=== PATIENT | female | born 1995 | race Caucasian/White ===

== ENCOUNTER 2016-06-18 14:51 | Emergency (ER) | payer OTHER ==
[~2016-06-18] VITALS: Ht 157.5 cm; Wt 77.1 kg
[~2016-06-18 14:51] MED LIST: TYLENOL WITH C1 EACH PO
--- NOTE | 2016-06-18 15:46 | ED GI/GU/ABDOMINAL COMPLAINT ---
History of Present Illness General Chief Complaint: Abdominal Pain/Flank Pain Stated Complaint: ABD PAIN Source: patient Exam Limitations: no limitations Vital Signs & Intake/Output Vital Signs & Intake/Output Vital Signs Date Time Temp Pulse Resp B/P Pulse O2 O2 Flow FiO2 Ox Delivery Rate 06/18 1835 97.4 82 18 126/70 98 Room Air 06/18 1745 Room Air 06/18 1650 97.9 91 18 130/59 98 Room Air 06/18 1454 96.4 109 16 128/85 97 Room Air Allergies Coded Allergies: No Known Allergies (12/17/15) Reconcile Medications Alprazolam 0.5 MG TABLET 1 TAB PO BIDP PRN ANXIETY (Reported) Escitalopram Oxalate (Unknown Strength) TABLET (Unknown Dose) UNKNOWN ( Reported) Etonogestrel/Ethinyl Estradiol (Nuvaring Vaginal Ring) 0.12 MG -0.015 MG/24 HR VAG.RING 1 EACH VG Q30D CONTROL (Reported) use for 3 weeks, skip for 1 week Levothyroxine Sodium (Unknown Strength) TABLET (Unknown Dose) PO DAILY UNKNOWN (Reported) Ondansetron (Zofran Odt) 4 MG TAB.RAPDIS 1 TAB SL TID PRN nausea Tylenol With Codeine (Tylenol With Codeine #3 Tablet) 1 EACH TABLET 1 TAB PO Q8P PRN PAIN Triage Note: 21 Y/O FEMALE C/O NAUSEA AND MID ABDOMINAL PAIN X 2 DAYS. STATES SHE VOMITED X 2 AT WORK TODAY. DENIES URINARY SYMPTOMS. LAST MENSES 2 WEEKS AGO AND NORMAL PER PT Triage Nurses Notes Reviewed? yes ? n Is pt currently ? No HPI: 21-year-old female here with complaints of 2 days of central epigastric abdominal pain and right upper quadrant abdominal pain that is nonradiating. She has nausea over the last 2 days and vomited twice today. She has poor appetite, she ate a banana this morning however vomited after eating it. Her pain is worse after eating. She has chills without fever. She is nauseous at this time. Pain is an 8 out of 10 and is colicky, it goes up to a 10 out of 10. She has not tried anything for the pain. She has no previous abdominal surgeries or problems. Her sister had appendicitis who is 13 years old, no known gallbladder trouble in the family. (LUBERTCHRYSTAL DURON) Past History Travel History Traveled to [place] past 21 day No Medical History Any Pertinent Medical History? none Neurological: NONE EENT: NONE Cardiovascular: NONE Respiratory: NONE Gastrointestinal: NONE Hepatic: NONE Renal: NONE Musculoskeletal: NONE Psychiatric: NONE Endocrine: NONE Blood Disorders: NONE Cancer(s): NONE TIE BUYER/Reproductive: NONE Surgical History Surgical History: non-contributory Psychosocial History What is your primary language Persian Tobacco Use: Never used Family History Hx Contributory? No (CHRYSTAL CID) Review of Systems Review of Systems Constitutional: Reports: see HPI. EENTM: Reports: no symptoms. Respiratory: Reports: no symptoms. Cardiovascular: Reports: no symptoms. GI: Reports: see HPI. Genitourinary: Reports: no symptoms. Musculoskeletal: Reports: no symptoms. Skin: Reports: no symptoms. Neurological/Psychological: Reports: no symptoms. Hematologic/Endocrine: Reports: no symptoms. Immunologic/Allergic: Reports: no symptoms. All Other Systems: Reviewed and Negative (CHRYSTAL CID) Physical Exam Physical Exam General Appearance: well developed/nourished Gastrointestinal: normal bowel sounds, soft, TENDERNESS IN THE EPIGASTRIC RIGHT UPPER QUADRANT POSITIVE [place] SIGN nEGATIVE LOWER ABDOMINAL TENDERNESS, NEGATIVE mCbURNEY'S POINT TENDERNESS Comments: Well-developed well-nourished no apparent distress. HEENT: Atraumatic, extraocular motion intact Neck: Supple, no lymphadenopathy Back: Nontender Respiratory: No respiratory distress clear to auscultation bilateral. Heart: Regular rate and rhythm no murmur Extremities: No edema, full range of motion Neuro: Alert and oriented x3 Psych: Mood affect normal, normal memory normal judgment. Skin: Warm and dry, no rash on exposed skin Core Measures ACS in differential dx? No Severe Sepsis Present: No Septic Shock Present: No (CHRYSTAL CID) Progress Differential Diagnosis: AAA, AMI, appendicitis, biliary colic, bowel obstruction , colon cancer, cholecystitis, diverticulitis, ectopic , endometritis, esophageal varices, gastritis, hepatitis, hernia, hemorrhoids, ischemic bowel, inflamm bowel dis, intrauterine , kidney stone, N[place]-Barbara tear, ovarian cyst, ovarian torsion, pancreatitis, PID/cervicitis, peptic ulcer, PUD/ GERD, perforated viscous, SBO, threatened AB, UTI/pyelo Plan of Care: Orders Procedure Date/time Status Saline Lock 06/18 1542 Active LIPASE 06/18 1542 Complete HUMAN BETA HCG SCREEN 06/18 1542 Complete COMPREHENSIVE METABOLIC PANEL 06/18 1542 Complete CBC WITHOUT DIFFERENTIAL 06/18 1542 Complete AMYLASE 06/18 1542 Complete URINALYSIS 06/18 1526 Active Laboratory Tests 06/18/16 1832: Urine Color Pending, Urine Clarity Pending, Urine pH Pending, Ur Specific [place] Pending, Urine Protein Pending, Urine Ketones Pending, Urine Nitrite Pending, Urine Bilirubin Pending, Urine Urobilinogen Pending, Ur Leukocyte Esterase Pending, Ur Microscopic SEDIMENT EXAMINED, Urine RBC Pending, Urine Hemoglobin Pending, Urine Glucose Pending 06/18/16 1550: Anion Gap 18 H, Estimated GFR > 60, BUN/Creatinine Ratio 23.3, Glucose 76, Calcium 9.9, Total Bilirubin 0.7, AST 26, ALT 34, Alkaline Phosphatase 49, Total Protein 8.2, Albumin 4.7, Globulin 3.5, Albumin/Globulin Ratio 1.3, Amylase 44, Lipase 63, Total Beta HCG NEGATIVE, CBC w Diff NO MAN DIFF REQ, RBC 5.25, MCV 83.3, MCH 28.1, RDW 12.5, MPV 8.9, Gran % 80.3 H, Lymphocytes % 15.3 L, Monocytes % 4.1, Eosinophils % 0.2, Basophils % 0.1, Absolute Granulocytes 8.6 H, Absolute Lymphocytes 1.6, Absolute Monocytes 0.4, Absolute Eosinophils 0, Absolute Basophils 0, PUBS MCHC 33.7 Diagnostic Imaging: Viewed by Me: CT Scan, Ultrasound. Discussed w/RAD: CT Scan, Ultrasound. Radiology Impression: PATIENT: NEERAJ MARQUEZ PRESENT AGE: 21 PATIENT ACCOUNT NO: [id number] : 94 LOCATION: [facility] ORDERING PHYSICIAN: CHRYSTAL VEGA SERVICE DATE: 06/18/16 EXAM TYPE: US - US -LIMITED ABDOMEN EXAMINATION: US ABDOMEN LIMITED CLINICAL INFORMATION: Evaluate for gallbladder disease. Right upper quadrant pain. COMPARISON: None TECHNIQUE: Real-time imaging of the right upper quadrant abdominal viscera. FINDINGS: PANCREAS: The visualized pancreas is grossly normal. LIVER: The liver is normal in size and echogenicity. No intrahepatic biliary duct dilatation. GALLBLADDER: The gallbladder is physiologically distended without evidence of stones, sludge, polyps, wall thickening or pericholecystic fluid. COMMON BILE DUCT: Normal in caliber measuring 0.3 cm in diameter. RIGHT KIDNEY: Normal in size, measuring 10.2 cm. No hydronephrosis. FREE FLUID: None. IMPRESSION: Normal right upper quadrant sonogram. DICTATED BY: TAMI BECKFORD MD DATE/TIME DICTATED:06/18/16, PATIENT: NEERAJ MARQUEZ PRESENT AGE: 21 PATIENT ACCOUNT NO: [id number] : 94 LOCATION: [facility] ORDERING PHYSICIAN: CHRYSTAL VEGA SERVICE DATE: 06/18/16 EXAM TYPE: CAT - CT ABD & PELVIS W IV CONTRAST EXAMINATION: CT ABDOMEN AND PELVIS WITH CONTRAST CLINICAL INFORMATION: Right lower quadrant abdominal pain and nausea. Evaluate for appendicitis. COMPARISON: None. TECHNIQUE: Multidetector volumetric imaging was performed of the abdomen and pelvis before and after the IV administration of 95 mL of Optiray 320 intravenous contrast. Sagittal and coronal reformatted images were obtained on the technologist's workstation. DLP: 335.88 mGy-cm. FINDINGS: The lung bases are clear. There are no pleural effusions. The liver, spleen, gallbladder, pancreas, adrenal glands, and kidneys are normal. The abdominal aorta is normal in caliber. There is no retroperitoneal adenopathy. The bladder is distended without wall thickening. The uterus is normal. The appendix is normal. There is no evidence of bowel obstruction. No mesenteric adenopathy is seen. A trace amount of fluid is noted in the deep pelvis. No acute osseous abnormality is seen. IMPRESSION: No acute intra-abdominal or pelvic pathology to explain the patient's presenting symptoms. No evidence of appendicitis. Trace amount of free fluid in the deep pelvis may be physiologic. DICTATED BY: HANNAH SOW MD DATE/TIME DICTATED:06/18/161817 PARK KEEPER:JOVANNI DATE/TIME TRANSCRIBED:06/18/161817 Initial ED EKG: none Comments: Patient treated with IV fluids and IV Zofran IV Toradol. She was reevaluated after ultrasound and now is having more right lower quadrant tenderness and pain. Her pain has improved and her nausea has improved however she did not have this initial presentation. We will order a CT scan of the abdomen and pelvis to evaluate for appendicitis. CT scan is unremarkable, normal appendix noted, discussed with patient she is feeling better, likely gastroenteritis as this has been prevalent in the community. She will be discharged home, Zofran as needed for nausea, return with worsening symptoms (CHRYSTAL CID) Departure Departure Disposition: HOME OR SELF CARE Condition: Stable Clinical Impression Primary Impression: Abdominal pain Qualifiers: Abdominal location: generalized Qualified Code: R10.84 - Generalized abdominal pain Secondary Impressions: Gastroenteritis Referrals: LELE PAYNE,JO-ANN Loya (PCP/Family) Additional Instructions: Takes Zofran for nausea, Motrin and Tylenol for pain, clear liquid diet and advance as tolerated, return to the ear with worsening abdominal pain nausea vomiting or fever Departure Forms: Customer Survey General Discharge Information Prescriptions: Current Visit Scripts Ondansetron (Zofran Odt) 1 TAB SL TID PRN nausea #10 TAB (CHRYSTAL CID) PA/FOREIGN EXCHANGE DEALER Co-Sign Statement Statement: ED Attending supervision documentation- [] I saw and evaluated the patient. I have also reviewed all the pertinent lab results and diagnostic results. I agree with the findings and the plan of care as documented in the PA's/FOREIGN EXCHANGE DEALER's documentation. x I have reviewed the ED Record and agree with the PA's/FOREIGN EXCHANGE DEALER's documentation. [] Additions or exceptions (if any) to the PAs/FOREIGN EXCHANGE DEALER's note and plan are summarized below: [] (LAMBERT PAYNE,LIZANDRO)
[2016-06-18] MEDS ORDERED: NUVARING VAGIN1 EACH VG (16:14)
[2016-06-18] MEDS ORDERED: ALPRAZOLAM0.5 M4 PO (16:14)
[2016-06-18] MEDS ORDERED: LEVOTHYROXINE25 MCG PO (16:15)
[2016-06-18] MEDS ORDERED: ESCITALOPRAM OX10 MG (16:15)
--- NOTE | 2016-06-18 16:30 | ULTRASOUND REPORT ---
EXAMINATION: US ABDOMEN LIMITED CLINICAL INFORMATION: Evaluate for gallbladder disease. Right upper quadrant pain. COMPARISON: None TECHNIQUE: Real-time imaging of the right upper quadrant abdominal viscera. FINDINGS: PANCREAS: The visualized pancreas is grossly normal. LIVER: The liver is normal in size and echogenicity. No intrahepatic biliary duct dilatation. GALLBLADDER: The gallbladder is physiologically distended without evidence of stones, sludge, polyps, wall thickening or pericholecystic fluid. COMMON BILE DUCT: Normal in caliber measuring 0.3 cm in diameter. RIGHT KIDNEY: Normal in size, measuring 10.2 cm. No hydronephrosis. FREE FLUID: None. IMPRESSION: Normal right upper quadrant sonogram.
[2016-06-18 16:43] LABS: ABSOLUTE BASOPHIL COUNT 0 /CUMM (0.0-0.2); ABSOLUTE EOSINOPHIL COUNT 0 /CUMM (0.0-0.7); ABSOLUTE GRANULOCYTE CT 8.6 /CUMM (1.4-6.5); ABSOLUTE LYMPH COUNT 1.6 /CUMM (1.2-3.4); ABSOLUTE MONOCYTE COUNT 0.4 /CUMM (0.10-0.60); BASOPHIL % 0.1 % (0.0-2.0); EOSINOPHIL % 0.2 % (0-5); GRANULOCYTE % 80.3 % (42.2-75.2); HEMATOCRIT 43.7 % (37-47); MEAN CORPUSCULAR HGB 28.1 PG (27.0-31.0); MEAN CORPUSCULAR HGB CONC 33.7 G/DL (33.0-37.0); MEAN CORPUSCULAR VOLUME 83.3 FL (81.0-99.0); MEAN PLATELET VOLUME 8.9 FL (7.4-10.4); PLATELET COUNT 321 /CUMM (130-400); RBC DISTRIBUTION WIDTH 12.5 % (11.5-14.5); RED BLOOD CELL CT 5.25 /CUMM (4.20-5.40); WHITE BLOOD CELL COUNT 10.7 /CUMM (4.8-10.8)
--- NOTE | 2016-06-18 18:31 | CT SCAN REPORT ---
EXAMINATION: CT ABDOMEN AND PELVIS WITH CONTRAST CLINICAL INFORMATION: Right lower quadrant abdominal pain and nausea. Evaluate for appendicitis. COMPARISON: None. TECHNIQUE: Multidetector volumetric imaging was performed of the abdomen and pelvis before and after the IV administration of 95 mL of Optiray 320 intravenous contrast. Sagittal and coronal reformatted images were obtained on the technologist's workstation. DLP: 335.88 mGy-cm. FINDINGS: The lung bases are clear. There are no pleural effusions. The liver, spleen, gallbladder, pancreas, adrenal glands, and kidneys are normal. The abdominal aorta is normal in caliber. There is no retroperitoneal adenopathy. The bladder is distended without wall thickening. The uterus is normal. The appendix is normal. There is no evidence of bowel obstruction. No mesenteric adenopathy is seen. A trace amount of fluid is noted in the deep pelvis. No acute osseous abnormality is seen. IMPRESSION: No acute intra-abdominal or pelvic pathology to explain the patient's presenting symptoms. No evidence of appendicitis. Trace amount of free fluid in the deep pelvis may be physiologic.
[2016-06-18 18:35] VITALS: BP 126/70
[2016-06-18] MEDS ORDERED: ZOFRAN ODT4 M1 SL ×2 (19:00→19:13)
== END 2016-06-18 19:18 ==
LOC: ERH 14:51
PROVIDERS: Physician Assistant Surgical
DX: K52.9 Noninfective gastroenteritis and colitis, unspecified (principal)
CPT/HCPCS: 74177; 81001; 81025; 96374; 96375; J1885; J2405